=== PATIENT | female | born 1950 | race Caucasian/White ===

== ENCOUNTER 2017-03-29 14:22 | Outpatient (CLI) | payer BC ==
--- NOTE | 2017-03-29 15:45 | MMO ---
BILATERAL SCREENING MAMMOGRAM: 03/29/17 HISTORY: Annual screening exam. COMPARISON: 04/09/16, 04/01/15, 04/02/14, 04/06/13, 04/04/11 exams. These films are reviewed with the assistance of computer aided detection. The breasts are fatty replaced. There is no dominant mass, suspicious calcification or other signs of malignancy. IMPRESSION: BI-RADS 1: Negative Routine annual screening mammography (for women over age 40) POS: [facility]
== END 2017-03-29 14:23 | disposition home or self-care (01) ==
LOC: MAMMO 14:22
PROVIDERS: ATTEND Family Medicine
DX: Z12.31 Encounter for screening mammogram for malignant neoplasm of breast (principal)
CPT/HCPCS: 77067; G0202

== ENCOUNTER 2018-02-21 11:15 | Outpatient (CLI) | payer MEDICARE, BC | END 2018-02-21 11:16 | disposition home or self-care (01) | LOC: BICMAMMO 11:15 | PROVIDERS: ATTEND Family Medicine | DX: Z12.31 Encounter for screening mammogram for malignant neoplasm of breast (principal); Z80.3 Family history of malignant neoplasm of breast | CPT/HCPCS: 77063; 77067 ==

== ENCOUNTER 2019-02-23 11:20 | Outpatient (CLI) | payer MEDICARE, BC ==
--- NOTE | 2019-02-23 13:07 | MMO ---
Bilateral MAMMO Bilat Screen [facility]. CLINICAL HISTORY: Patient is 68 years old and is seen for screening. The patient has the following family history of breast cancer: maternal grandmother. The patient has no personal history of cancer. VIEWS: The views performed were: bilateral craniocaudal with tomosynthesis and bilateral mediolateral oblique with tomosynthesis. FILMS COMPARED: The present examination has been compared to a prior imaging study performed at [facility] on 02/21/2018. This study has been interpreted with the assistance of computer-aided detection. MAMMOGRAM FINDINGS: There are scattered fibroglandular densities. There are no suspicious masses, suspicious calcifications, or new areas of architectural distortion. IMPRESSION: THERE IS NO MAMMOGRAPHIC EVIDENCE OF MALIGNANCY. A ROUTINE FOLLOW-UP MAMMOGRAM IN 1 YEAR IS RECOMMENDED. THE RESULTS OF THIS EXAM WERE SENT TO THE PATIENT. ACR BI-RADS Category 1 - Negative MAMMOGRAPHY NOTE: 1. A negative mammogram report should not delay a biopsy if a dominant of clinically suspicious mass is present. 2. Approximately 10% to 15% of breast cancers are not detected by mammography. 3. Adenosis and dense breasts may obscure an underlying neoplasm. Reported by: KAREEM MANZANO MD Electonically Signed: [id number]
== END 2019-02-23 11:21 | disposition home or self-care (01) ==
LOC: BICMAMMO 11:20
PROVIDERS: ATTEND Family Medicine
DX: Z12.31 Encounter for screening mammogram for malignant neoplasm of breast (principal); Z80.3 Family history of malignant neoplasm of breast
CPT/HCPCS: 77063; 77067

== ENCOUNTER 2019-05-27 11:45 | Outpatient (CLI) | payer MEDICARE, BC ==
--- NOTE | 2019-05-27 13:31 | RAD ---
RADIOGRAPH CHEST 2 VIEWS: DATE: 05/27/2019 HISTORY: 69-year-old female with other chest pain. Chest tightness. FINDINGS: There is no air space density, pulmonary edema, pleural effusion, pneumothorax, or cardiomegaly. IMPRESSION: No acute cardiopulmonary findings. jn [] POS: [facility]
== END 2019-05-27 11:46 | disposition home or self-care (01) ==
LOC: BICRAD 11:45
PROVIDERS: ATTEND Family Medicine
DX: R07.89 Other chest pain (principal)
CPT/HCPCS: 71046

== ENCOUNTER 2019-07-09 09:41 | Outpatient (CLI) | payer MEDICARE, BC ==
--- NOTE | 2019-07-09 12:03 | ULT ---
US Arterial Doppler Upper Ext History: Cold hands. Arterial occlusion. Comparison: None. Findings: Real-time grayscale, color, and spectral analysis of the bilateral upper extremity arterial system was performed. Adequate vascular flow to both upper extremities. No parvus tardus deformity. No focal hemodynamicall y significant stenosis. Impression: Adequate flow through the bilateral upper extremities without a focal hemodynamically sig nificant stenosis.
== END 2019-07-09 09:42 | disposition home or self-care (01) ==
LOC: ULT 09:41
PROVIDERS: ATTEND Internal Medicine Endocrinology, Diabetes & Metabolism
DX: I70.208 Unspecified atherosclerosis of native arteries of extremities, other extremity (principal); R20.8 Other disturbances of skin sensation
CPT/HCPCS: 93923

== ENCOUNTER 2019-08-06 09:04 | Outpatient (CLI) | payer MEDICARE, BC ==
--- NOTE | 2019-08-06 11:47 | CT ---
CT ABDOMEN ONLY WITH CONTRAST: Date: 08/06/2019 Oral contrast was administered. Multiplanar reconstruction obtained. INDICATION: Abdominal pain with nausea and vomiting. Weight loss. Comparison made to prior CT abdomen dated 12/25/2016. FINDINGS: Images through the lung bases reveal a small 4.0 mm pleural based nodule in the posterior left lung b ase which is stable. There is another 4-5 mm nodule in the left lower lobe more anteriorly which is a lso stable from the prior study. Liver, spleen, and pancreas appear unremarkable and unchanged in appearance when compared to prior st udy. Stomach shows nonspecific wall thickening in the gastric fundus and gastric body. The antrum mandy ears unremarkable. Consider endoscopy. Adrenal glands unremarkable. Kidneys unremarkable. Small bowel loops appear unremarkable and are opacified. The appendix is partially imaged and appears unremarkable. The lower abdomen and pelvis are not imaged on this abdomen only study. The visualized colon shows prominent stool. There are scattered diverticula in the visualized left colon. Aorta is normal caliber. No adenopathy. Degenerative spine changes are noted. IMPRESSION: 1. There are two small nodules in the left lung base which are stable from prior exam. 2. Nonspecific mural thickening in the gastric fundus and gastric body. Consider endoscopy. 3. CT abdomen otherwise unremarkable and stable from prior exam. POS: [facility]
[2019-08-06] MEDS ORDERED: Iopamidol-370 76% 500 ML 1 ML ONE (13:40)
== END 2019-08-06 09:05 | disposition home or self-care (01) ==
LOC: BICCT 09:04
PROVIDERS: ATTEND Internal Medicine Gastroenterology
DX: R10.9 Unspecified abdominal pain (principal); R11.2 Nausea with vomiting, unspecified; K31.89 Other diseases of stomach and duodenum; R91.8 Other nonspecific abnormal finding of lung field; Z80.0 Family history of malignant neoplasm of digestive organs
CPT/HCPCS: 74160; 82565; Q9967

== ENCOUNTER 2019-09-15 10:17 | Outpatient (CLI) | payer MEDICARE, BC ==
--- NOTE | 2019-09-15 12:21 | BD ---
BONE DENSITOMETRY USING DEXA: Date: 09/15/2019 HISTORY: Postmenopausal screening for osteoporosis. FINDINGS: Lumbar Spine: BMD (g/cm2) L1 1.082 T-Score: 0.8 Z-Score: 2.8 L2 1.207 T-Score: 1.6 Z-Score: 3.8 L3 1.999 T-Score: 1.0 Z-Score: 3.3 L4 1.108 T-Score: 0.4 Z-Score: 2.8 L1-L4 1.149 T-Score: 0.9 Z-Score: 3.1 Femoral Neck: 0.637 T-Score: -1.9 Z-Score: 0.0 Total Femur: 0.962 T-Score: 0.2 Z-Score: 1.7 The 10 year fracture risk for a major osteoporotic fracture is 11% and for a hip fracture is 2%. IMPRESSION: Osteopenia. POS: [facility]
== END 2019-09-15 10:18 | disposition home or self-care (01) ==
LOC: BICMAMMO 10:17
PROVIDERS: ATTEND Family Medicine
DX: Z13.820 Encounter for screening for osteoporosis (principal); N95.9 Unspecified menopausal and perimenopausal disorder; M85.859 Other specified disorders of bone density and structure, unspecified thigh
CPT/HCPCS: 77080

== ENCOUNTER 2020-02-25 13:58 | Outpatient (CLI) | payer MEDICARE, BC ==
--- NOTE | 2020-02-25 14:47 | MMO ---
Bilateral MAMMO Bilat Screen [facility]. CLINICAL HISTORY: Patient is 69 years old and is seen for screening. The patient has the following family history of breast cancer: maternal grandmother. The patient has no personal history of cancer. VIEWS: The views performed were: bilateral craniocaudal with tomosynthesis and bilateral mediolateral oblique with tomosynthesis. FILMS COMPARED: The present examination has been compared to prior imaging studies performed at [facility] on 02/21/2018 and 02/23/2019, and at [facility] on 04/09/2016 and 03/29/2017. This study has been interpreted with the assistance of computer-aided detection. MAMMOGRAM FINDINGS: There are scattered fibroglandular densities. There are stable benign appearing calcifications seen in both breasts. There are no suspicious masses, suspicious calcifications, or new areas of architectural distortion. IMPRESSION: THERE IS NO MAMMOGRAPHIC EVIDENCE OF MALIGNANCY. A ROUTINE FOLLOW-UP MAMMOGRAM IN 1 YEAR IS RECOMMENDED. THE RESULTS OF THIS EXAM WERE SENT TO THE PATIENT. ACR BI-RADS Category 2 - Benign finding MAMMOGRAPHY NOTE: 1. A negative mammogram report should not delay a biopsy if a dominant of clinically suspicious mass is present. 2. Approximately 10% to 15% of breast cancers are not detected by mammography. 3. Adenosis and dense breasts may obscure an underlying neoplasm. Reported by: ARMANDO DAVIS MD Electonically Signed: [id number]
== END 2020-02-25 13:59 | disposition home or self-care (01) ==
LOC: BICMAMMO 13:58
PROVIDERS: ATTEND Family Medicine
DX: Z12.31 Encounter for screening mammogram for malignant neoplasm of breast (principal); Z80.3 Family history of malignant neoplasm of breast
CPT/HCPCS: 77063; 77067

== ENCOUNTER 2021-02-27 13:56 | Outpatient (CLI) | payer MEDICARE, BC | END 2021-02-27 13:57 | disposition home or self-care (01) | LOC: BICMAMMO 13:56 | PROVIDERS: ATTEND Family Medicine | DX: Z12.31 Encounter for screening mammogram for malignant neoplasm of breast (principal); Z80.3 Family history of malignant neoplasm of breast | CPT/HCPCS: 77063; 77067 ==

== ENCOUNTER 2021-07-12 15:30 | Outpatient (CLI) | payer MEDICARE, BC | END 2021-07-12 15:31 | disposition home or self-care (01) | LOC: ULT 15:30 | PROVIDERS: ATTEND Internal Medicine Endocrinology, Diabetes & Metabolism | DX: I73.9 Peripheral vascular disease, unspecified (principal) | CPT/HCPCS: 93923 ==

== ENCOUNTER 2022-02-28 13:28 | Outpatient (CLI) | payer MEDICARE, BC | END 2022-02-28 13:29 | disposition home or self-care (01) | LOC: BICMAMMO 13:28 | PROVIDERS: ATTEND Family Medicine | DX: Z12.31 Encounter for screening mammogram for malignant neoplasm of breast (principal); Z80.3 Family history of malignant neoplasm of breast | CPT/HCPCS: 77063; 77067 ==

== ENCOUNTER 2023-03-07 11:33 | Outpatient (CLI) | payer MEDICARE, BC | END 2023-03-07 11:34 | disposition home or self-care (01) | LOC: BICRAD 11:33 | PROVIDERS: ATTEND Family Medicine | DX: R05.3 Chronic cough (principal) | CPT/HCPCS: 71046 ==

== ENCOUNTER 2023-03-25 14:16 | Outpatient (CLI) | payer MEDICARE, BC | END 2023-03-25 14:17 | disposition home or self-care (01) | LOC: BICMAMMO 14:16 | PROVIDERS: ATTEND Family Medicine | DX: Z12.31 Encounter for screening mammogram for malignant neoplasm of breast (principal); Z80.3 Family history of malignant neoplasm of breast | CPT/HCPCS: 77063; 77067 ==

== ENCOUNTER 2023-10-29 15:11 | Outpatient (CLI) | payer MEDICARE | END 2023-10-29 15:12 | disposition home or self-care (01) | LOC: BICMAMMO 15:11 | PROVIDERS: ATTEND Family Medicine | DX: Z13.820 Encounter for screening for osteoporosis (principal); M85.851 Other specified disorders of bone density and structure, right thigh; M85.852 Other specified disorders of bone density and structure, left thigh; Z78.0 Asymptomatic menopausal state | CPT/HCPCS: 77080 ==

== ENCOUNTER 2024-03-26 12:52 | Outpatient (CLI) | payer MEDICARE | END 2024-03-26 12:53 | disposition home or self-care (01) | LOC: BICMAMMO 12:52 | PROVIDERS: ATTEND Family Medicine | DX: Z12.31 Encounter for screening mammogram for malignant neoplasm of breast (principal); Z80.3 Family history of malignant neoplasm of breast | CPT/HCPCS: 77063; 77067 ==